=== PATIENT | female | born 1950 | race Caucasian/White ===

== ENCOUNTER 2021-05-12 17:11 | Emergency (ER) | payer MEDICARE ==
[~2021-05-12] VITALS: Ht 157.5 cm; Wt 68.9 kg
[2021-05-12] MEDS ORDERED: LIDOCAINE HCL 2% LOCAL 20 ML VIAL INJ STA (17:27)
[2021-05-12] MEDS ORDERED: ACETAMINOPHEN 325 MG TAB PO ONE (17:30)
[2021-05-12] MEDS ORDERED: MUPIROCIN 2% OINT 22 GM TUBE TOP ONE (17:30)
[2021-05-12] MEDS ORDERED: DOXYCYCLINE HY100 MG PO (17:39)
[2021-05-12] MEDS ORDERED: ACETAMINOPHEN500 MG PO (17:39)
[2021-05-12] MEDS ORDERED: BACITRACIN ZINC 0.9GM TP ONE (17:46)
[2021-05-12] MEDS ORDERED: TETANUS/DIPHTHERIA TOX ADULT 0.5 ML SYR ONE (17:46)
[2021-05-12] MEDS ORDERED: TETANUS/DIPHTHERIA TOX ADULT 0.5 ML SYR IM ONE (18:00)
== END 2021-05-12 18:45 | disposition home or self-care (01) ==
LOC: FSED 17:32
DX: S91.211A Laceration without foreign body of right great toe with damage to nail, initial encounter (principal); W20.8XXA Other cause of strike by thrown, projected or falling object, initial encounter; Y92.008 Other place in unspecified non-institutional (private) residence as the place of occurrence of the external cause; H54.61 Unqualified visual loss, right eye, normal vision left eye
CPT/HCPCS: 90471; 90714; 99283

== ENCOUNTER 2021-07-18 21:07 | Emergency (ER) | payer MEDICARE ==
[~2021-07-18] VITALS: Ht 162.6 cm; Wt 72.6 kg
[~2021-07-18 21:07] MED LIST: ACETAMINOPHEN500 MG PO; DOXYCYCLINE HY100 MG PO
[2021-07-18] MEDS ORDERED: SODIUM CHLORIDE 0.9% 1000ML 1,000 ML IV STA (21:44)
[2021-07-18 22:04] LABS: BASOPHILS % 0.4 % (0.0-1.0); HEMATOCRIT 35.3 % (34.2-44.1); LYMPHOCYTES # (AUTO) 0.9 (1.0-3.2); LYMPHOCYTES % 8.7 % (18.0-39.1); MEAN CORPUSCULAR HEMOGLOBIN 27.6 pg (28-32); MEAN CORPUSCULAR HGB CONC 31.2 g/dL (31-35); MEAN CORPUSCULAR VOLUME 88.5 fL (81-99); MONOCYTES # (AUTO) 0.6 (0.2-0.8); MONOCYTES % 6.1 % (4.4-11.3); NEUTROPHILS # (AUTO) 8.7 (2.1-6.9); NEUTROPHILS % 84.5 % (38.7-80.0); PLATELET COUNT 303 x10e3/uL (140-360); RED BLOOD COUNT 3.99 x10e6/uL (3.6-5.1); RED CELL DISTRIBUTION WIDTH 14.2 % (11.7-14.4)
[2021-07-18] MEDS ORDERED: ACETAMINOPHEN 1000 MG/100 ML IV STA (22:07)
[2021-07-18 22:14] LABS: INR 0.92; PARTIAL THROMBOPLASTIN TIME 30.2 seconds (23.8-35.5); PROTHROMBIN TIME 13.1 seconds (11.9-14.5)
[2021-07-18 22:24] LABS: ALBUMIN 3.6 g/dL (3.5-5.0); ANION GAP 17.1 mmol/L (8-16); CALCIUM 8.1 mg/dL (8.4-10.2); CREATININE, SERUM 1.26 mg/dL (0.57-1.11); POTASSIUM 4.1 mmol/L (3.5-5.1)
[2021-07-18 22:30] LABS: CREATINE KINASE MB 0.5 ng/mL (0-5.0)
[2021-07-18] MEDS ORDERED: DEXAMETHASONE SOD PHOS 10 MG/1 ML VIAL IV ONE (23:15)
[2021-07-18] MEDS ORDERED: CEFTRIAXONE 1 GM in SODIUM CHLORIDE 0.9% 50ML 50 ML IV ONE (23:15)
[2021-07-18] MEDS ORDERED: CEPHALEXIN500 MG PO (23:53)
[2021-07-18] MEDS ORDERED: PREDNISONE50 MG PO (23:53)
[2021-07-19] MEDS ORDERED: BROMFED DM COU118 ML PO (00:10)
[2021-07-19] MEDS ORDERED: VENTOLIN HFA18 GM INH (00:11)
[2021-07-19 01:29] VITALS: BP 128/76
== END 2021-07-19 01:15 | disposition home or self-care (01) ==
LOC: MERGE 21:16 → ER 21:16
DX: U07.1 COVID-19 (principal); Z88.6 Allergy status to analgesic agent; Z88.0 Allergy status to penicillin; Z91.048 Other nonmedicinal substance allergy status
CPT/HCPCS: 36415; 71045; 80053; 82550; 82553; 83880; 84484; 85025; 85610; 85730; 99284; J0131; J0456; J0696; J1100; J7030; J7050; U0002

== ENCOUNTER 2022-11-15 16:35 | Emergency (ER) | payer MEDICARE ==
[~2022-11-15] VITALS: Ht 162.6 cm; Wt 72.6 kg
[~2022-11-15 16:35] MED LIST changes: +BROMFED DM COU118 ML PO; +CEPHALEXIN500 MG PO; +PREDNISONE50 MG PO; +VENTOLIN HFA18 GM INH
[2022-11-15] MEDS ORDERED: ONDANSETRON HCL INJ 2MG/ML 2ML 2 MG/ML VIAL ONE (17:08)
[2022-11-15] MEDS ORDERED: SODIUM CHLORIDE 0.9% 1000ML 1,000 ML ONE (17:08)
[2022-11-15] MEDS ORDERED: LACTATED RINGER'S 1,000 ML INJ ONE (17:15)
[2022-11-15 17:28] LABS: EOSINOPHILS # (AUTO) 0.1 (0.0-0.4); EOSINOPHILS % 3.4 % (0.0-6.0); HEMATOCRIT 29.2 % (34.2-44.1); HEMOGLOBIN 9.5 g/dL (12.0-16.0); LYMPHOCYTES # (AUTO) 1.9 (1.0-3.2); LYMPHOCYTES % 46.1 % (18.0-39.1); MEAN CORPUSCULAR HEMOGLOBIN 32.5 pg (28-32); MEAN CORPUSCULAR HGB CONC 32.5 g/dL (31-35); MONOCYTES # (AUTO) 0.2 (0.2-0.8); MONOCYTES % 5.3 % (4.4-11.3); NEUTROPHILS # (AUTO) 1.8 (2.1-6.9); NEUTROPHILS % 43.7 % (38.7-80.0); PLATELET COUNT 69 x10e3/uL (140-360); RED BLOOD COUNT 2.92 x10e6/uL (3.6-5.1); RED CELL DISTRIBUTION WIDTH 16.4 % (11.7-14.4)
[2022-11-15 17:49] LABS: ALBUMIN 3.3 g/dL (3.5-5.0); ALBUMIN/GLOBULIN RATIO 1.1 (0.8-2.0); ALKALINE PHOSPHATASE 114 IU/L (40-150); ANION GAP 15.2 mmol/L (8-16); BLOOD UREA NITROGEN 19 mg/dL (7-26); BUN/CREATININE RATIO 19 (6-25); CALCIUM 8.8 mg/dL (8.4-10.2); CARBON DIOXIDE 23 mmol/L (22-29); CHLORIDE 105 mmol/L (98-107); CREATININE, SERUM 0.98 mg/dL (0.57-1.11); GLUCOSE 122 mg/dL (74-118); POTASSIUM 3.2 mmol/L (3.5-5.1); SODIUM 140 mmol/L (136-145)
[2022-11-15 17:53] LABS: ALANINE AMINOTRANSFERASE < 6 IU/L (0-55)
== END 2022-11-15 19:40 | disposition home or self-care (01) ==
LOC: ER 16:46
DX: R42 Dizziness and giddiness (principal); E86.0 Dehydration; H54.61 Unqualified visual loss, right eye, normal vision left eye; Z85.89 Personal history of malignant neoplasm of other organs and systems
CPT/HCPCS: 36415; 80053; 84484; 85025; 93005; 99283; J2405; J7030

== ENCOUNTER 2022-11-26 07:36 | Emergency (ER) | payer MEDICARE ==
[~2022-11-26] VITALS: Ht 162.6 cm; Wt 72.6 kg
[2022-11-26] MEDS ORDERED: SODIUM CHLORIDE 0.9% 1000ML 1,000 ML IV ONE ×2 (08:15→13:00)
[2022-11-26 08:42] LABS: BASOPHILS # (AUTO) 0.1 (0.0-0.1); BASOPHILS % 0.6 % (0.0-1.0); EOSINOPHILS # (AUTO) 0.2 (0.0-0.4); EOSINOPHILS % 1.7 % (0.0-6.0); HEMATOCRIT 29.9 % (34.2-44.1); HEMOGLOBIN 9.5 g/dL (12.0-16.0); LYMPHOCYTES % 22.5 % (18.0-39.1); MEAN CORPUSCULAR HEMOGLOBIN 33.1 pg (28-32); MEAN CORPUSCULAR HGB CONC 31.8 g/dL (31-35); MEAN CORPUSCULAR VOLUME 104.2 fL (81-99); MONOCYTES # (AUTO) 1.3 (0.2-0.8); MONOCYTES % 14.9 % (4.4-11.3); NEUTROPHILS # (AUTO) 5.2 (2.1-6.9); NEUTROPHILS % 58.8 % (38.7-80.0); PLATELET COUNT 208 x10e3/uL (140-360); RED BLOOD COUNT 2.87 x10e6/uL (3.6-5.1); RED CELL DISTRIBUTION WIDTH 19.9 % (11.7-14.4)
[2022-11-26 09:06] LABS: ALBUMIN/GLOBULIN RATIO 0.9 (0.8-2.0); ANION GAP 18.1 mmol/L (8-16); CALCIUM 8.7 mg/dL (8.4-10.2); CREATININE, SERUM 5.9 mg/dL (0.57-1.11); POTASSIUM 4.1 mmol/L (3.5-5.1)
[2022-11-26 11:00] VITALS: O2SAT 98
[2022-11-26] MEDS ORDERED: SODIUM CHLORIDE 0.9% 1000ML 1,000 ML ONE (12:55)
== END 2022-11-26 13:30 | disposition short-term general hospital (02) ==
LOC: ER 07:46
DX: N17.9 Acute kidney failure, unspecified (principal); Z85.038 Personal history of other malignant neoplasm of large intestine
CPT/HCPCS: 36415; 70450; 72125; 73502; 80053; 84484; 85025; 93005; 99284; J7030